=== PATIENT | male | born 1960 | race Two or more races ===

== ENCOUNTER → 2017-07-13 | Outpatient (CLI) | payer OTHER ==
[~2017-07-13] MED LIST: IBUP800T25 PO
--- NOTE | 2017-07-13 10:36 | RADRPT ---
PROCEDURE: CR Left Knee with weight bearing CLINICAL INDICATION: Pain TECHNIQUE: An AP, tunnel, lateral, and a sunrise view were submitted. COMPARISON: None FINDINGS: Osseous Structures: A 9 mm in diameter nonaggressive appearing lucency with sclerotic margination is seen within the posterolateral proximal left tibial metaphysis which likely represents a benign cor tical defect. The osseous elements otherwise appear intact. Joint Spaces: The joint spaces are well maintained. No joint effusion is identified. Soft Tissues: The soft tissues appear unremarkable. IMPRESSION: 1. Nonaggressive 9 mm lesions seen within the posterolateral proximal left tibial metaphysis most c ompatible with a benign cortical defect. 2. Otherwise, unremarkable left knee series. Physician Noa Date Time Electronically viewed and signed by Physician Noa on 07/13/2017 10:35 RH/
--- NOTE | 2017-07-13 10:39 | RADRPT ---
PROCEDURE: CR Pelvis and Left Hip CLINICAL INDICATION: Pain TECHNIQUE: Radiograph is submitted including an AP pelvis and an additional image of the left hip. COMPARISON: None FINDINGS: Osseous structures: There is slight flattening of the left femoral head with a subchondral area of l ucency suspicious for avascular necrosis. Hip joints: There is obliteration of the weightbearing aspect of the joint space of the left hip wit h a combination of degenerative spurring and subchondral cyst formation compatible with an end-stage degenerative left hip. The right hip appears normal. Sacroiliac joints: The sacroiliac joints appear unremarkable with no significant sclerosis or erosio n. Soft tissues: Appear unremarkable. 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 Physician Noa Date Time Electronically viewed and signed by Physician Noa on 07/13/2017 10:38 /
--- NOTE | 2017-07-13 12:05 | HKNOTE ---
DATE OF SERVICE: 07/13/2017 CHIEF COMPLAINT: Left hip pain. HISTORY OF PRESENT ILLNESS: This is a 56-year-old male complaining of a 15- year history of increasing left hip and groin pain. The pain radiates to the left knee. He has difficulty ambulating. He has been using a cane for the past year. He takes ibuprofen without pain relief. He has difficulty performing his activities of daily living including walking, climbing stairs, sitting in a car. There are no alleviating factors. The pain is aggravated by walking and standing. He denies any back pain. He denies any history of trauma. He has no other complaints. Gait: Antalgic gait with use of assistive device. Left hip exam: Zero to 80 degrees of flexion, -5 degrees of internal rotation 30 degrees of external rotation. No flexion contracture. Positive Maynor's test , positive obligate external rotation, negative straight leg raise. Left knee exam 0 to 130 degrees range of motion, stable to varus valgus stress. Nontender over the medial and lateral joint lines. Negative Td's, negative Elle, negative anterior drawer, negative posterior drawer. IMAGING: X-rays left knee: Four views of the left knee demonstrate medial joint space narrowing, no marginal osteophytes. No fractures or dislocations. AP pelvis: There are degenerative changes of the left hip with shortening of the left hip. There are cysts present in the femoral head with subchondral sclerosis. AP and lateral x-rays left hip 2 views of the left hip demonstrate advanced degenerative changes of the left hip with loss of all joint space. There are cysts within the femoral head with subchondral sclerosis and marginal osteophytes. IMPRESSION: A 56-year-old male with left hip osteoarthritis. PLAN: I discussed treatment options with Mr. Gill. I discussed left total hip arthroplasty with the patient. He would like to think about surgical options and discuss it with his family. He will follow up as needed in the future. Dictated By: JENN SUAREZ/CINTHIA Conf#: [id number] DID#: [id number]
== END | disposition home or self-care (01) ==
LOC: HKI 09:47
PROVIDERS: ATTEND Orthopaedic Surgery Adult Reconstructive Orthopaedic Surgery
DX: M16.12 Unilateral primary osteoarthritis, left hip (principal); M25.552 Pain in left hip
CPT/HCPCS: 73502; 73564; Z7500; G0463

== ENCOUNTER → 2017-10-01 | Outpatient (CLI) | END | disposition home or self-care (01) ==

== ENCOUNTER → 2017-12-14 | Outpatient (CLI) | END | disposition home or self-care (01) ==

== ENCOUNTER 2017-12-17 08:49 | Inpatient (IN) | END 2017-12-19 15:09 | disposition home health service (06) | DRG 470 ==

== ENCOUNTER → 2018-01-01 | Outpatient (CLI) | END | disposition home or self-care (01) ==

== ENCOUNTER → 2018-02-01 | Outpatient (CLI) | END | disposition home or self-care (01) ==

== ENCOUNTER → 2018-03-01 | Outpatient (CLI) | END | disposition home or self-care (01) ==

== ENCOUNTER → 2018-06-21 | Outpatient (CLI) | END | disposition home or self-care (01) ==

== ENCOUNTER 2019-02-12 11:13 | Emergency (ER) | payer OTHER ==
[~2019-02-12] VITALS: Wt 81.0 kg
[2019-02-12] MEDS ORDERED: SOD CHLORIDE 0.9% 1,000 ML IV STA (12:20)
[2019-02-12] MEDS ORDERED: LORAZEPAM 2 MG INJ ONE (12:59)
--- NOTE | 2019-02-12 13:16 | ERD ---
ER Documentation Chief Complaint Chief Complaint PER FAMILY PT HAS BEEN ACTING STRANGE WITH BURSTS OF ANGER X 5 DAYS HPI This is a 58-year-old man but in by family members for increasing agitation, hyperverbosity, depression, episodes of crying, and combative behavior with his for about 3 weeks now. Son who was at the bedside states he suspects that his father has had years of depression and anxiety but about 3 weeks ago his symptoms became daily and much more intense. He was diagnosed with an allergic reaction and hives about 3 weeks ago and was given a dose of dexamethasone IM, which is when kids state his symptoms got worse. He has had no fevers or chills, no complaints of chest pain or shortness of breath, no vomiting or diarrhea ROS All systems reviewed and are negative except as per history of present illness. Medications Home Meds No Active Prescriptions or Reported Meds Allergies Allergies: Coded Allergies: No Known Allergy (Unverified , 05/02/16) PMhx/Soc History of Surgery: Yes (l fingers, hernia repare) Anesthesia Reaction: No Hx Neurological Disorder: No Hx Respiratory Disorders: No Hx Cardiac Disorders: No Hx Psychiatric Problems: No Hx Miscellaneous Medical Probl: Yes (dyslipidemia) Hx Alcohol Use: No Hx Substance Use: No Hx Tobacco Use: No Smoking Status: Never smoker FmHx Family History: No diabetes Physical Exam Vitals Vital Signs Date Temp Pulse Resp B/P (MAP) Pulse Ox O2 O2 Flow FiO2 Time Delivery Rate 02/12/19 96.9 62 18 96/55 (69) 100 Nasal 2.0 15:30 Cannula 02/12/19 64 18 111/64 100 Nasal 2.0 14:12 (80) Cannula 02/12/19 96.9 62 16 115/69 99 14:05 (84) 02/12/19 98.0 65 17 106/52 99 13:50 (70) 02/12/19 97.9 60 17 125/82 99 13:35 (96) 02/12/19 97.9 62 18 113/65 99 13:20 (81) 02/12/19 83 15 151/87 100 Room Air 13:06 (108) 02/12/19 98.0 61 18 158/72 99 11:17 (100) Physical Exam GENERAL: Well-developed, well-nourished, well-hydrated, depressed affect, afebrile HEENT: Moist mucous membranes, pink conjunctiva, no cervical spine tenderness or step-off deformities, no goiter, no jaundice or icterus, extraocular movements intact without pain. No submandibular induration, and no pharyngeal erythema NEURO: Alert and oriented 3, cranial nerves II through XII intact bilaterally, pupils equal round reactive to light, no focal deficits or facial asymmetry, sensation intact distally Strength 5/5 in upper and lower extremities bilaterally CARDIAC: Regular rate and rhythm, no murmurs rubs or gallops LUNGS: Clear bilaterally no wheezing crackles or stridor ABDOMEN: Soft nontender, no guarding, no rigidity, no rebound, no psoas sign no obturator sign. Normoactive bowel sounds SKIN: Warm and dry to touch, no abrasions, contusions, or hematomas, no lacerations, no ecchymosis, no target lesions, and without ulcers EXTREMITIES: No clubbing cyanosis or edema, calves are bilaterally symmetrical, no Homans sign, no popliteal cord sign. Distal pulses equal and bilateral PSYCH: Depressed affect, agitated, combative Result Diagram: 02/12/19 1236 02/12/19 1236 Results 24 hrs Laboratory Tests Test 02/12/19 12:17 02/12/19 12:36 02/12/19 13:40 Bedside Glucose 150 mg/dL White Blood Count 10.4 10^3/ul Red Blood Count 5.05 10^6/ul Hemoglobin 15.4 g/dl Hematocrit 45.0 % Mean Corpuscular Volume 89.1 fl Mean Corpuscular Hemoglobin 30.5 pg Mean Corpuscular 34.2 g/dl Hemoglobin Concent Red Cell Distribution Width 12.0 % Platelet Count 305 10^3/UL Mean Platelet Volume 10.1 fl Immature Granulocytes % 0.400 % Neutrophils % 61.9 % Lymphocytes % 28.4 % Monocytes % 8.8 % Eosinophils % 0.1 % Basophils % 0.4 % Nucleated Red Blood Cells % 0.0 /100WBC Immature Granulocytes # 0.040 10^3/ul Neutrophils # 6.4 10^3/ul Lymphocytes # 2.9 10^3/ul Monocytes # 0.9 10^3/ul Eosinophils # 0.0 10^3/ul Basophils # 0.0 10^3/ul Nucleated Red Blood Cells # 0.0 10^3/ul Sodium Level 139 mmol/L Potassium Level 3.5 mmol/L Chloride Level 104 mmol/L Carbon Dioxide Level 24 mmol/L Anion Gap 11 Blood Urea Nitrogen 11 mg/dl Creatinine 0.65 mg/dl Est Glomerular Filtrat > 60 mL/min Rate mL/min Glucose Level 153 mg/dl Calcium Level 9.1 mg/dl Total Bilirubin 1.1 mg/dl Direct Bilirubin 0.00 mg/dl Indirect Bilirubin 1.1 mg/dl Aspartate Amino 33 IU/L Transf (AST/SGOT) Alanine 37 IU/L Aminotransferase (ALT/SGPT) Alkaline Phosphatase 97 IU/L Troponin I 0.017 ng/ml Total Protein 8.2 g/dl Albumin 4.2 g/dl Globulin 4.00 g/dl Albumin/Globulin Ratio 1.05 Lipase 215 U/L Ethyl Alcohol Level < 10.0 mg/dl Urine Color YELLOW Urine Clarity CLEAR Urine pH 8.0 Urine Specific [place] 1.011 Urine Ketones NEGATIVE mg/dL Urine Nitrite NEGATIVE mg/dL Urine Bilirubin NEGATIVE mg/dL Urine Urobilinogen NEGATIVE mg/dL Urine Leukocyte Esterase NEGATIVE Maria Eugenia/ul Urine Microscopic RBC 2 /HPF Urine Microscopic WBC 3 /HPF Urine Hemoglobin 1+ mg/dL Urine Glucose NEGATIVE mg/dL Urine Total Protein NEGATIVE mg/dl Urine Opiates Screen Negative Urine Barbiturates Negative Urine Amphetamines Screen Negative Urine Benzodiazepines Screen Negative Urine Cocaine Screen Negative Urine Cannabinoids Negative Current Medications Medications Dose Sig/Abel Start Time Status Last (Trade) Ordered Route PRN Stop Time Admin Dose Reason Admin Sodium 1,000 ml @ Q1H STAT 02/12/19 DC 02/12/19 Chloride 1,000 mls/hr IV 12:20 12:41 02/12/19 13:19 Lorazepam 2 mg STK-MED 02/12/19 DC (Ativan) ONCE .ROUTE 12:59 02/12/19 13:00 Procedures/MDM IV line was established patient was placed on school bus monitor rhythm strip revealed a sinus rhythm at about 80 bpm with upright P and T waves. Patient was afebrile One AP view of the chest performed, read by me reveals no acute infiltrates, normal mediastinum, sharp costophrenic and cardiac borders, no air under the diaphragm. Otherwise unremarkable chest x-ray. CT scan of the brain was negative for acute bleed mass or shift. I administered 2 mg lorazepam IM for agitation and aggressive combative behavior CBC and electrolytes are normal, liver function tests normal, troponin negative, ethanol level and drug screen negative Patient's behavioral symptoms have stabilized while in the department. Patient is medically cleared and appropriate for psychiatric evaluation and work up. No e/o neurologic, toxic, infectious, or metabolic cause. 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
[2019-02-13] MEDS ORDERED: ACETAMINOPHEN 500 MG TAB PO STA (10:03)
[2019-02-13] MEDS ORDERED: IBUP-1542 PO (10:37)
[2019-02-13] MEDS ORDERED: HYDR-842 PO (10:38)
[2019-02-13] MEDS ORDERED: CHOL200056 PO (10:39)
[2019-02-13 17:26] VITALS: BP 128/60; PULSE 60; RESP 18
== END 2019-02-13 17:49 | disposition short-term general hospital (02) ==
LOC: E/R 11:13
DX: F19.959 Other psychoactive substance use, unspecified with psychoactive substance-induced psychotic disorder, unspecified (principal); F32.3 Major depressive disorder, single episode, severe with psychotic features; R07.9 Chest pain, unspecified; R41.82 Altered mental status, unspecified
CPT/HCPCS: 70450; 71045; 80053; 80307; 81001; 82962; 83690; 84484; 85025; J2060; J7030; Z7610; 36415; 93005